=== PATIENT | female | born 1970 | race Caucasian/White ===

== ENCOUNTER → 2019-01-18 | Outpatient (CLI) | payer BC ==
--- NOTE | 2019-01-18 14:38 | Diagnostic Imaging Report ---
Solid-phase gastric emptying study Reason for examination: K21.9: GERD without esophagitis The protocol used for this study is based on the Consensus Recommendations for Gastric Scintigraphy by the [place] [employer] and the Society of [employer]. Clinical information: The patient is not diabetic. The patient had gastric sleeve placement in 2019. The patient is not on Dexilant, sucralfate and famotidine; all of these were held today. The patient has been fasting for at least 6 hours prior to this exam. Radiopharmaceutical: Tc-99m sulfur colloid 1 mCi Report: The radiopharmaceutical was added to Ensure Enlive 8 ounces. The patient took the nutritional drink orally without difficulty. Images were obtained of the abdomen in the anterior and posterior projections at 10 minutes post the meal and at 1, 2 and 3 hours. Uptake was determined from the geometric mean of the anterior and posterior counts and the counts were corrected for decay of the radiolabel. The percent gastric retention of the labeled meal at: 1 hour was 68% (normal 30-90%) 2 hours was 10% (normal <60%) 3 hours was 3% (normal <30%) 4 hour measurement not obtained because gastric retention was less than 10% at 3 hours. Impression: The pattern of gastric emptying is normal. The findings do not support the clinical diagnosis of gastroparesis. Signed by: Dr. Lucie Reed M.D. on 01/18/2019 2:34 PM
== END ==
LOC: NM 07:55
PROVIDERS: ATTEND Internal Medicine Gastroenterology
DX: K21.0 Gastro-esophageal reflux disease with esophagitis (principal); R12 Heartburn; R11.0 Nausea; Z68.22 Body mass index [BMI] 22.0-22.9, adult
CPT/HCPCS: 78264; A9541

== ENCOUNTER 2020-10-20 13:24 | Emergency (ER) | payer BC ==
[~2020-10-20] VITALS: Ht 162.6 cm; Wt 56.7 kg
[2020-10-20] MEDS ORDERED: CASIRIVIMAB/IMDEVIMAB 10 ML in SODIUM CHLORIDE 0.9% 100 ML IV ONE (14:00)
== END 2020-10-20 17:05 | disposition home or self-care (01) ==
LOC: ER 13:57
DX: R05 Cough (principal); U07.1 COVID-19; E03.9 Hypothyroidism, unspecified
CPT/HCPCS: 99282